=== PATIENT | female | born 1995 | race Caucasian/White ===

== ENCOUNTER 2020-03-11 16:26 | Emergency (ER) | payer BC, OTHER, SELFPAY ==
[~2020-03-11] VITALS: Ht 160 cm; Wt 81.2 kg
[2020-03-11 16:26] VITALS: BP 123/67
[2020-03-11] MEDS ORDERED: ALEV220T22 PO (16:32)
[2020-03-11] MEDS ORDERED: ONDANSETRON 4MG/2ML VIAL IV ONE (17:00)
[2020-03-11] MEDS ORDERED: NS 1,000 ML IV ONE (17:00)
[2020-03-11] MEDS ORDERED: KETOROLAC 30 MG/ML 1ML VIAL IV ONE (17:00)
[2020-03-11 17:16] LABS: BASO % 0.2 % (0.0-1.0); EOS % 0.1 % (0.0-3.0); HEMATOCRIT 40.5 % (36.0-47.0); HEMOGLOBIN 13.3 g/dl (12.0-15.5); LYMPH # 0.9 10^3/uL (1.5-5.0); LYMPH % 4.4 % (24.0-44.0); MEAN CORPUSCULAR HEMOGLOBIN 27.5 pg (27.0-33.0); MEAN CORPUSCULAR HGB CONC 32.8 g/dl (32.0-36.5); MEAN CORPUSCULAR VOLUME 83.7 fl (80.0-96.0); MONO # 1.7 10^3/uL (0.0-0.8); MONO % 8.2 % (0.0-5.0); NEUTROPHILS # 18.2 10^3/uL (1.5-8.5); NEUTROPHILS % 86.6 % (36.0-66.0); PLATELET COUNT, AUTOMATED 288 10^3/uL (150-450); RED BLOOD COUNT 4.84 10^6/uL (4.00-5.40); WHITE BLOOD COUNT 21.1 10^3/uL (4.0-10.0)
[2020-03-11 17:42] LABS: ALBUMIN 4.2 GM/DL (3.2-5.2); ALT/SGPT 28 U/L (12-78); BILIRUBIN, URINE MANUAL NEGATIVE (NEGATIVE); BILIRUBIN,DIRECT 0.2 MG/DL (0.0-0.2); BILIRUBIN,TOTAL 0.7 MG/DL (0.2-1.0); BLOOD UREA NITROGEN 8 MG/DL (7-18); CALCIUM LEVEL 9.3 MG/DL (8.5-10.1); CARBON DIOXIDE LEVEL 26 MEQ/L (21-32); CHLORIDE LEVEL 104 MEQ/L (98-107); CREATININE FOR GFR 0.89 MG/DL (0.55-1.30); GLOMERULAR FILTRATION RATE > 60.0 (>60); GLUCOSE, FASTING 91 MG/DL (70-100); GLUCOSE, URINE (UA) MANUAL NEGATIVE (NEGATIVE); KETONE, URINE MANUAL 3+ mg/dL (NEGATIVE); LIPASE 43 U/L (73-393); POTASSIUM SERUM 3.9 MEQ/L (3.5-5.1); SODIUM LEVEL 137 MEQ/L (136-145); UROBILINOGEN, URINE MANUAL NORMAL (NORMAL)
--- NOTE | 2020-03-11 17:47 | REPVR ---
PROCEDURE INFORMATION: Exam: CT Abdomen And Pelvis Without Contrast Exam date and time: 03/11/2020 4:54 PM Age: 24 years old Clinical indication: Abdominal pain; Additional info: Llq pain TECHNIQUE: Imaging protocol: Computed tomography of the abdomen and pelvis without contrast. Radiation optimization: All CT scans at this facility use at least one of these dose optimization techniques: automated exposure control; mA and/or kV adjustment per patient size (includes targeted exams where dose is matched to clinical indication); or iterative reconstruction. COMPARISON: No relevant prior studies available. FINDINGS: Liver: Normal. No mass. Gallbladder and bile ducts: Normal. No calcified stones. No ductal dilation. Pancreas: Normal. No ductal dilation. Spleen: Normal. No splenomegaly. Adrenals: Normal. No mass. Kidneys and ureters: Normal. No hydronephrosis. Stomach and bowel: Small focus of inflammation demonstrated adjacent to the distal left colon at the sigmoid junction may represent a small focus of diverticulitis or epiploic appendagitis (series 201, image 90). Appendix: No evidence of appendicitis. Intraperitoneal space: Unremarkable. No free air. No significant fluid collection. Vasculature: Unremarkable. No abdominal aortic aneurysm. Lymph nodes: Unremarkable. No enlarged lymph nodes. Bladder: Unremarkable as visualized. Reproductive: Unremarkable as visualized. Bones/joints: Unremarkable. No acute fracture. Soft tissues: Unremarkable. IMPRESSION: Small focus of inflammation demonstrated adjacent to the distal left colon at the sigmoid junction may represent a small focus of diverticulitis or epiploic appendagitis. Electronically signed by: Julio Cesar Rosenthal On 03/11/2020 17:47:25 PM
[2020-03-11 17:52] LABS: BACTERIA, URINE SMALL AMOUNT; MUCUS, URINE LARGE AMOUNT (NEGATIVE); SQUAMOUS EPITHELIAL CELL URINE LARGE AMOUNT /hpf (SMALL AMT)
[2020-03-11] MEDS ORDERED: FLAG500T PO (18:16)
[2020-03-11] MEDS ORDERED: CIPR-249 PO (18:16)
== END 2020-03-11 18:48 | disposition home or self-care (01) ==
LOC: M ED 16:26
DX: K57.30 Diverticulosis of large intestine without perforation or abscess without bleeding (principal); Z88.8 Allergy status to other drugs, medicaments and biological substances
CPT/HCPCS: 74176; 80048; 80076; 81000; 83690; 84702; 85025; 96361; 96374; 99283; J1885; J2405

== ENCOUNTER → 2020-06-30 | Outpatient (CLI) | payer SELFPAY ==
[~2020-06-30] MED LIST: ALEV220T22 PO; CIPR-249 PO; FLAG500T PO
== END ==
LOC: M LABSMTC 11:09
PROVIDERS: ATTEND Pediatrics
DX: Z20.822 Contact with and (suspected) exposure to COVID-19 (principal)

== ENCOUNTER → 2020-09-14 | Outpatient (CLI) | payer OTHER ==
[2020-09-14 15:58] LABS: BASO # 0.1 10^3/uL (0.0-0.2); BASO % 0.9 % (0.0-1.0); EOS # 0.4 10^3/uL (0.0-0.5); EOS % 5.5 % (0.0-3.0); HEMOGLOBIN 13.1 g/dl (12.0-15.5); LYMPH # 1.6 10^3/uL (1.5-5.0); LYMPH % 25.2 % (24.0-44.0); MEAN CORPUSCULAR HEMOGLOBIN 28.3 pg (27.0-33.0); MEAN CORPUSCULAR VOLUME 88.6 fl (80.0-96.0); MONO # 0.5 10^3/uL (0.0-0.8); MONO % 8.3 % (2.0-8.0); NEUTROPHILS # 3.8 10^3/uL (1.5-8.5); NEUTROPHILS % 59.8 % (36.0-66.0); PLATELET COUNT, AUTOMATED 283 10^3/uL (150-450); RED BLOOD COUNT 4.63 10^6/uL (4.00-5.40); WHITE BLOOD COUNT 6.4 10^3/uL (4.0-10.0)
[2020-09-14 16:35] LABS: ALBUMIN 3.7 GM/DL (3.2-5.2); ALT/SGPT 25 U/L (12-78); BILIRUBIN,TOTAL 0.3 MG/DL (0.2-1.0); BLOOD UREA NITROGEN 10 MG/DL (7-18); CALCIUM LEVEL 9.3 MG/DL (8.5-10.1); CARBON DIOXIDE LEVEL 28 MEQ/L (21-32); CHLORIDE LEVEL 104 MEQ/L (98-107); CREATININE FOR GFR 0.69 MG/DL (0.55-1.30); FREE T4 0.95 NG/DL (0.76-1.46); GLOMERULAR FILTRATION RATE > 60.0 (>60); GLUCOSE, FASTING 72 MG/DL (70-100); POTASSIUM SERUM 4.3 MEQ/L (3.5-5.1); SODIUM LEVEL 137 MEQ/L (136-145); TOTAL PROTEIN 7.4 GM/DL (6.4-8.2)
[2020-09-14 17:14] LABS: H PYLORI QUALITATIVE IgG NEGATIVE (NEGATIVE)
== END ==
LOC: M WUC 11:32
PROVIDERS: ATTEND Physician Assistant
DX: R12 Heartburn (principal)

== ENCOUNTER → 2020-12-28 | Outpatient (CLI) | payer OTHER ==
[~2020-12-28] MED LIST changes: +FAMO40TA3 PO; +OMEP40CA4 PO; +ZOFR4TAB16 PO
== END ==
LOC: M LABSMTC 11:44
PROVIDERS: ATTEND Anesthesiology
DX: Z01.812 Encounter for preprocedural laboratory examination (principal)

== ENCOUNTER 2021-01-02 08:09 | Day surgery (SDC) | payer OTHER ==
[~2021-01-02] VITALS: Ht 154.9 cm; Wt 81.6 kg
[~2021-01-02 08:09] MED LIST changes: +LIDOCAINE 2% 100MG/5ML SDV (FOR ANES.) As Ordered ONE; +NS 1,000 ML IV ONE; +fentaNYL 100 MCG/2 ML INJECTION As Ordered ONE; +propofoL 200 MG/20 ML VIAL As Ordered ONE
[2021-01-02 10:20] VITALS: BP 125/87
== END 2021-01-02 10:31 | disposition home or self-care (01) ==
LOC: M OPP 08:09
PROVIDERS: ATTEND Surgery
DX: K31.89 Other diseases of stomach and duodenum (principal); K21.9 Gastro-esophageal reflux disease without esophagitis; Z88.1 Allergy status to other antibiotic agents
CPT/HCPCS: 43239; 88305; J3010

== ENCOUNTER → 2021-12-27 | Outpatient (REF) | payer BC, OTHER ==
[~2021-12-27] MED LIST changes: -LIDOCAINE 2% 100MG/5ML SDV (FOR ANES.) As Ordered ONE; -NS 1,000 ML IV ONE; -fentaNYL 100 MCG/2 ML INJECTION As Ordered ONE; -propofoL 200 MG/20 ML VIAL As Ordered ONE
[2021-12-28 12:59] LABS: IRON (FE) 26 UG/DL (50-170)
[2021-12-28 13:14] LABS: VITAMIN B12 LEVEL 264 PG/ML (247-911)
== END ==
LOC: M LAB REF 12:07
PROVIDERS: ATTEND Nurse Practitioner Adult Health
DX: L60.8 Other nail disorders (principal)

== ENCOUNTER → 2022-06-13 | Outpatient (REF) | payer BC, OTHER ==
[2022-06-13 17:59] LABS: FERRITIN 13.6 NG/ML (7.3-270.7)
== END ==
LOC: M LAB REF 16:20
PROVIDERS: ATTEND Nurse Practitioner Adult Health
DX: L60.8 Other nail disorders (principal)

== ENCOUNTER → 2022-12-12 | Outpatient (REF) | payer BC, OTHER ==
[2022-12-12 14:29] LABS: HEMATOCRIT 42.1 % (36.0-47.0)
[2022-12-12 14:32] LABS: IRON (FE) 59 UG/DL (50-170)
[2022-12-12 14:39] LABS: VITAMIN B12 LEVEL 458 PG/ML (211-911)
== END ==
LOC: M LAB REF 12:31
PROVIDERS: ATTEND Nurse Practitioner Adult Health
DX: L60.8 Other nail disorders (principal)

== ENCOUNTER → 2023-02-21 | Outpatient (CLI) | payer BC | LOC: M WUC 10:59 | PROVIDERS: ATTEND Physician Assistant Medical | DX: M79.641 Pain in right hand (principal) ==

== ENCOUNTER → 2023-08-13 | Outpatient (REF) | payer BC | LOC: M LAB REF 16:25 | PROVIDERS: ATTEND Nurse Practitioner Adult Health | DX: L60.8 Other nail disorders (principal) ==

== ENCOUNTER → 2024-08-11 | Outpatient (REF) | payer OTHER ==
[2024-08-11 14:29] LABS: HEMATOCRIT 44.4 % (36.0-47.0)
[2024-08-11 15:00] LABS: FERRITIN 23.1 NG/ML (7.3-270.7)
[2024-08-11 15:02] LABS: PERCENT SATURATION 20.6 % (13.2-45.0)
== END ==
LOC: M LAB REF 13:06
PROVIDERS: ATTEND Nurse Practitioner Adult Health
DX: E61.1 Iron deficiency (principal)

== ENCOUNTER → 2025-04-08 | Outpatient (CLI) | payer OTHER | LOC: M PLAIMG 08:28 | PROVIDERS: ATTEND Otolaryngology | DX: J33.0 Polyp of nasal cavity (principal) ==